=== PATIENT | male | born 1995 | race Caucasian/White ===

== ENCOUNTER 2024-02-17 02:23 | Emergency (ER) | payer BC ==
[~2024-02-17] VITALS: Ht 177.8 cm; Wt 74.8 kg
[2024-02-17 03:21] LABS: BASOPHILS % (AUTO) 0.4 % (0.0-2.0); EOSINOPHILS % (AUTO) 0.2 % (0.0-7.0); HEMOGLOBIN 14.3 g/dL (12.5-16.3); LYMPHOCYTES % (AUTO) 9.4 % (20.5-51.5); MEAN CORPUSCULAR HEMOGLOBIN 31.8 uug (23.8-33.4); MEAN CORPUSCULAR HGB CONC 34 g/dL (32.5-36.3); MEAN CORPUSCULAR VOLUME 93.5 fL (73.0-96.2); MONOCYTES # (AUTO) 0.6 K/uL (0.1-1.30); MONOCYTES % (AUTO) 5.3 % (0.0-11.0); NEUTROPHILS # (AUTO) 9.2 K/uL (1.8-8.9); NEUTROPHILS % (AUTO) 84.7 % (38.5-71.5); PLATELET COUNT (AUTO) 217 K/uL (152-348); RED CELL DISTRIBUTION WIDTH 12.2 % (12.1-16.2); WHITE BLOOD COUNT (AUTO) 10.9 K/uL (3.6-10.2)
[2024-02-17 03:26] LABS: DIFFERENTIAL COMMENT 1
[2024-02-17 03:42] LABS: CALCIUM 8.6 mg/dL (8.5-10.1); CREATININE 0.9 mg/dL (0.6-1.3)
[2024-02-17 03:47] LABS: ALBUMIN 4.3 g/dL (3.4-5.0); BILIRUBIN,TOTAL 0.3 mg/dL (0.2-1.0)
[2024-02-17] MEDS: IV NS 1000 ML 1,000 ML IV ONE (04:00)
[2024-02-17] MEDS ORDERED: ONDANSETRON ODT 4 MG TAB.RAPDIS ONE (05:44)
[2024-02-17] MEDS: ONDANSETRON ODT 4 MG TAB.RAPDIS SL ONE (05:45)
[2024-02-17 06:29] VITALS: BP 105/69; TEMP 97.8; O2SAT 95
== END 2024-02-17 06:26 | disposition home or self-care (01) ==
LOC: ER 02:26
DX: F10.129 Alcohol abuse with intoxication, unspecified (principal); R41.82 Altered mental status, unspecified; I95.9 Hypotension, unspecified; Y90.1 Blood alcohol level of 20-39 mg/100 ml
CPT/HCPCS: 80053; 85025; 99285; 96360; 80320; 80307; J7040; A4606; A4663; C1758; G0480; Q0162